=== PATIENT | male | born 2000 | race Caucasian/White ===

== ENCOUNTER 2019-03-31 20:13 | Emergency (ER) | payer OTHER, SELFPAY ==
[2019-03-31] VITALS (23 sets, daily range): BP systolic 116–146; BP diastolic 53–90; PULSE 89–140; RESP 15–30; TEMP 36.7; O2SAT 97–100
--- NOTE | 2019-03-31 20:26 | ED.GENADUL_ITS ---
Discharge Plan Disposition Patient Disposition: HOME Condition: Good Discharge Details Chief Complaint: Allergic Clinical Impression: Allergic reaction Primary Care Provider: Ino Sterling ED Provider: Ino Muñoz Home Meds and New Rx's Prescriptions: New diphenhydramine HCl [Benadryl] 25 MG capsule 25 mg PO Q6H Qty: 100 RF: 0 prednisone 50 MG tablet 50 mg PO DAILY Qty: 5 RF: 0 epinephrine 0.3 mg/0.3 mL auto-injector 0.3 mg IM ONCE Qty: 2 RF: 0 Continued epinephrine [EpiPen 2-Rod] 0.3 MG/0.3 ML auto-injector 0.3 mg IM ONCE Qty: 2 RF: 2 Discharge Instructions Instructions: General Allergic Reaction (ED) Additional Instructions: You have had an allergic reaction. I feel that complete anaphylaxis was held off secondary to your self administration of your EpiPen. Please continue to take 25 mg of Benadryl every 6 hours. Please take the steroid as directed. Please continue to do your best to avoid any tree nuts. If you notice any return of your symptoms please administer your epinephrine and come back to the emergency department immediately for reassessment. If you notice any worsening of your symptoms, or any new symptoms such as vomiting, diarrhea, fever, chills, shortness of breath, chest pain, numbness, weakness, or fainting , please return immediately to the emergency department for reevaluation. Please follow up with your primary care provider as soon as possible for reassessment and reevaluation . As always, it was a pleasure participating in your medical care today. If you do need to use the EpiPen, please apply it to your front aspect of your thigh. 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 Patient ate a meat was [employer] which had sunflower oil in it. Shortly after that he developed symptoms of an atypical tickling his throat which was the precursor to his previous episode of anaphylaxis. Within the past 20 minutes he did a self-administered injection of epinephrine into his anterior lateral thigh. He took 2 Benadryl pills, and came in for further evaluation. Exam demonstrates mild tachycardia, minimal erythema in the posterior oropharynx, but no evidence of angioedema, airway compromise, or significant swelling. No hives on the body, no wheezes in the lungs, and no historical component of vomiting or diarrhea. At this time the patient does look clinically well but notably anxious. I feel this may be secondary to his epinephrine injection. We will hold off on any additional epinephrine at this time, give Solu-Medrol, Pepcid, and additional 25 mg of Benadryl and IV fluids. We will monitor for the next 2 to 3 hours. 10:30 PM On reassessment after prolonged observation. The patient is doing very well. Reexamination of the oropharynx demonstrates no erythema whatsoever, no edema, no evidence of airway compromise. No evidence of rebound anaphylaxis. We discussed risks and benefits of prolonged observation versus discharge and family would like to go home at this time. With a normal exam, reassuring vital signs, no evidence of significant anaphylaxis patient will be discharged with close follow-up with his PCP. Recommend steroids and Benadryl at home, we will give a new EpiPen prescription. He already does have an EpiPen at this time at time of discharge. I have extensively reviewed the treatment plan and discharge instructions with the patient and their family. I have addressed all patient concerns at this time. The patient and family was made aware of what symptoms to monitor for that would warrant a return to the emergency department. Discussed the plan with the patient and family, they demonstrate verbal understanding and agreement with our assessment and plan at this time. HPI General Date/Time Provider Initiated Documentation: 03/31/19 20:18 . HPI Narrative: This is a 18-year-old male with a past medical history only significant for notable allergies to tree nuts, causing anaphylaxis. He presents today for evaluation of allergic reaction. He was eating a meat list burger and unfortunately it did have sunflower oil in it. He immediately began to feel odd, with a notable tickle in his throat. His symptoms were similar to the initial onset when he had his last episode of anaphylaxis in 2012. This occurred 20 minutes ago. Shortly after he noticed his symptoms he injected himself with epinephrine into the anterior lateral thigh, and took 2 Benadryl pills. Since then he has been doing okay. He has not had any vomiting or diarrhea. He denies any rash, difficulty breathing, difficulty swallowing. He denies any hyper secretions. He states he does feel slightly anxious. He has no other complaints at this time. No other modifying factors. He denies any IV or illicit drug use, pertinent family history, or recent surgeries. Related Data Home Medications Medication Instructions Recorded Confirmed diphenhydramine HCl [Benadryl] 25 mg PO Q6H #100 cap 03/31/19 epinephrine 0.3 mg IM ONCE #2 each 03/31/19 epinephrine [EpiPen 2-Rod] 0.3 mg IM ONCE #2 kit 03/31/19 prednisone 50 mg PO DAILY #5 tab 03/31/19 Previous Rx's Medication Instructions Recorded diphenhydramine HCl [Benadryl] 25 mg PO Q6H #100 cap 03/31/19 epinephrine 0.3 mg IM ONCE #2 each 03/31/19 epinephrine [EpiPen 2-Rod] 0.3 mg IM ONCE #2 kit 03/31/19 prednisone 50 mg PO DAILY #5 tab 03/31/19 Allergies Allergy/AdvReac Type Severity Reaction Status Date / Time sunflower seed Allergy Severe Anaphylaxsi Unverified 09/18/17 08:20 s cashew nut Allergy Unknown Unverified 09/18/17 08:20 pistachio nut Allergy Unknown Unverified 09/18/17 08:20 tree nut Allergy Unknown Unverified 09/18/17 08:20 [place] Nut Allergy Unknown Uncoded 12/24/16 15:05 General Stated Complaint: Allergic JEFF: 2 Review of Systems Review of Systems All systems reviewed & are unremarkable except as noted in HPI and below PFSH Medical History Tree nut allergy Family History Mother Mental disorder Father Essential hypertension Hyperlipidemia Brother No problems noted. Social History Smoking/Tobacco Use Status: Never Alcohol Intake: never Drug use: Never Do you feel safe at home: Yes Do you feel safe in your relationship?: Yes Exam Narrative Exam Narrative: 1.Const: Well-nourished, Well-developed, appearing stated age 2.Eyes: PERRL, no conjunctival injection, and symmetrical lids. 3.ENT: Atraumatic external nose and ears. Moist MM. Neck: Symmetric, trachea midline, No thyromegaly. Minimal erythema in the posterior oropharynx. No evidence of significant tonsillar enlargement, angioedema, or airway compromise. No signs of significant hyper secretions. 4.CVS: +S1/S2, No murmurs or gallops. Peripheral pulses 2+ and equal in all extremities. Brisk capillary refill in all extremities. 5.RESP: Unlabored respiratory effort. Clear to auscultation bilaterally. No wheezes rales or rhonchi 6.GI: Soft, Nontender/Nondistended, No hepatosplenomegaly. No guarding or rebound. 7.MSK: Normocephalic/Atraumatic, Extremities w/o deformity or ttp No cyanosis or clubbing, Normal movement of all extremities 8.Skin: Warm, Dry. No rashes or lesions. 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 Sensation grossly intact, no focal neurologic deficits. 10.Psych: (AAO) x3. Appropriate mood and affect Course Vital Signs Temperature 36.7 C 03/31/19 20:22 Pulse 140 H 03/31/19 20:22 Respiratory Rate 20 03/31/19 20:22 Blood Pressure 139/59 L 03/31/19 20:22 Pulse Oximetry 99 03/31/19 20:22 Temperature 36.7 C 03/31/19 20:22 Temperature Source Tympanic 03/31/19 20:22 Pulse 140 H 03/31/19 20:22 Respiratory Rate 20 03/31/19 20:22 Blood Pressure 139/59 L 03/31/19 20:22 Pulse Oximetry 99 03/31/19 20:22 Oxygen Delivery Method Room Air 03/31/19 20:22 Oxygen Flow Rate 0 03/31/19 20:22 Pain Level 0 03/31/19 20:22
[2019-03-31] MEDS: FAMOTIDINE 20 MG/50 ML BAG 200 MG IVPB (20:38)
[2019-03-31] MEDS: diphenhydrAMINE 50 MG/ML VIAL 25 MG IVP (20:38)
[2019-03-31] MEDS: methylPREDNISolone SUCC 125 MG VIAL IVP (20:39)
[2019-03-31] MEDS: Normal Saline 1,000 ML 1000 ML IV (20:39)
== END 2019-03-31 22:42 | disposition home or self-care (01) ==
PROVIDERS: Emergency Provider Student in an Organized Health Care Education/Training Program; PCP Pediatrics
DX: T78.05XA Anaphylactic reaction due to tree nuts and seeds, initial encounter (principal); R00.0 Tachycardia, unspecified
CPT/HCPCS: 96361; 96374; 96375; 99284; J1200; J2930

== ENCOUNTER 2021-08-29 03:01 | Outpatient (CLI) | payer BC, SELFPAY ==
[2021-08-29 11:02] LABS: Anion Gap 12.2 mmol/L (3-11); BUN 16 mg/dL (7-18); CO2 23.8 mmol/L (21.0-32.0); CREATININE 1.2 mg/dL (0.70-1.30); Calcium 9.7 mg/dL (8.5-10.1); Calculated LDL 145 mg/dL (<100); Chloride 103 mmol/L (98-107); Cholesterol 238 mg/dL (<200); Glucose 89 mg/dL (74-106); HDL Cholesterol 59 mg/dL (40-60); Sodium 139 mmol/L (136-145); Triglyceride 174 mg/dL (<150)
== END 2021-08-29 03:02 | disposition home or self-care (01) ==
LOC: LBO 03:01
PROVIDERS: PCP Student in an Organized Health Care Education/Training Program; Visit Provider Student in an Organized Health Care Education/Training Program
DX: Z82.49 Family history of ischemic heart disease and other diseases of the circulatory system; Z13.220 Encounter for screening for lipoid disorders
CPT/HCPCS: 36415; 80048; 80061

== ENCOUNTER 2022-10-31 02:02 | Outpatient (CLI) | payer BC, SELFPAY ==
[2022-10-31 10:20] LABS: ALT 25 U/L (16-63); AST 11 U/L (15-37); Albumin 4.5 g/dL (3.4-5.0); Alkaline Phosphatase 61 U/L (46-116); Anion Gap 9.9 mmol/L (3-11); BUN 19 mg/dL (7-18); Bilirubin, Total 0.4 mg/dL (0.2-1.0); CO2 28.1 mmol/L (21.0-32.0); Calcium 9.2 mg/dL (8.5-10.1); Calculated LDL 133 mg/dL (<100); Chloride 106 mmol/L (98-107); Cholesterol 213 mg/dL (<200); Estimated GFR 108.46 (mL/min/1.73m2); Glucose 102 mg/dL (74-106); HDL Cholesterol 56 mg/dL (40-60); Potassium 3.8 mmol/L (3.5-5.1); Sodium 144 mmol/L (136-145); Total Protein 7.6 g/dL (6.4-8.2); Triglyceride 124 mg/dL (<150)
== END 2022-10-31 02:03 | disposition home or self-care (01) ==
LOC: LBO 02:02
PROVIDERS: PCP Student in an Organized Health Care Education/Training Program; Visit Provider Student in an Organized Health Care Education/Training Program
DX: Z00.00 Encounter for general adult medical examination without abnormal findings (principal); E66.3 Overweight; E86.0 Dehydration; Z13.220 Encounter for screening for lipoid disorders; Z91.018 Allergy to other foods; Z82.49 Family history of ischemic heart disease and other diseases of the circulatory system
CPT/HCPCS: 36415; 80053; 80061; 86900; 86901

== ENCOUNTER 2024-09-01 04:13 | Outpatient (CLI) | payer BC, SELFPAY ==
[2024-09-01 09:14] LABS: Anion Gap 10.7 mmol/L (3-11); BUN 15 mg/dL (7-18); CO2 27.3 mmol/L (21.0-32.0); CREATININE 1.1 mg/dL (0.70-1.30); Calcium 9.6 mg/dL (8.5-10.1); Calculated LDL 117 mg/dL (<100); Chloride 105 mmol/L (98-107); Cholesterol 203 mg/dL (<200); Estimated GFR 96.14 (mL/min/1.73m2); Glucose 94 mg/dL (74-106); HDL Cholesterol 58 mg/dL (40-60); Potassium 4.1 mmol/L (3.5-5.1); Sodium 143 mmol/L (136-145); Triglyceride 143 mg/dL (<150)
== END 2024-09-01 04:14 | disposition home or self-care (01) ==
LOC: LBO 04:13
PROVIDERS: PCP Student in an Organized Health Care Education/Training Program; Visit Provider Student in an Organized Health Care Education/Training Program
DX: Z13.220 Encounter for screening for lipoid disorders (principal); Z13.1 Encounter for screening for diabetes mellitus; Z91.89 Other specified personal risk factors, not elsewhere classified
CPT/HCPCS: 36415; 80048; 80061

== ENCOUNTER 2025-05-12 18:35 | Emergency (ER) | payer BC, SELFPAY ==
[2025-05-12] VITALS (18 sets, daily range): BP systolic 91–107; BP diastolic 34–65; PULSE 109–124; RESP 20; TEMP 36.5; O2SAT 97–100
--- NOTE | 2025-05-12 18:55 | ED.GENADUL_ITS ---
Discharge Plan Disposition Patient Disposition: Home Condition: Stable Discharge Details Clinical Impression: Allergic reaction Primary Care Provider: Dav Cooper ED Provider: Ector Chapin Home Meds and New Rx's Prescriptions: New prednisone 20 mg tablet 60 mg PO DAILY 4 Days Qty: 12 0RF Continued epinephrine 0.3 mg/0.3 mL auto-injector 0.3 mg IM ONCE Qty: 2 2RF Rx Instructions: Use prn severe allergic reaction diphenhydramine HCl [Benadryl] 25 MG capsule 25 mg PO Q6H Qty: 100 0RF Discharge Instructions Additional Instructions: Follow-up with your primary care provider as needed. You can take 25 to 50 mg of Benadryl or generic diphenhydramine every 6 hours as needed. If you feel more ill or have recurrent lip swelling, rash or difficulty breathing use your EpiPen and return to the emergency department for reevaluation. HPI General Mode of arrival: ambulatory . Date/Time Provider Initiated Documentation: 05/12/25 18:51 . Limitations to Documentation: no limitations . Information obtained by: patient . History of Present Illness 24 year old M presents to the emergency department with the chief complaint of lip swelling, described as moderate, Patient started experiencing this hour(s) (1) and it has been now resolved. No relieving factors improve symptom(s), No exacerbating factors reported . Patient notes denies chest pain, nausea/vomiting and shortness of breath. Related Data Home Medications ?Medication ?Instructions ?Recorded ?Confirmed diphenhydramine HCl 25 mg capsule 25 mg PO Q6H #100 ca ps 03/31/19 01/20/25 (Benadryl) epinephrine 0.3 mg/0.3 mL 0.3 mg (0.3 mL) IM ONCE #2 e a 05/12/25 injection, auto-injector prednisone 20 mg tablet 60 mg (3 x 20 mg) PO DAILY 4 days 05/12/25 #12 tabs Previous Rx's ?Medication ?Instructions ?Recorded diphenhydramine HCl 25 mg capsule 25 mg PO Q6H #100 ca ps 03/31/19 (Benadryl) epinephrine 0.3 mg/0.3 mL 0.3 mg (0.3 mL) IM ONCE #2 e a 05/12/25 injection, auto-injector prednisone 20 mg tablet 60 mg (3 x 20 mg) PO DAILY 4 days 05/12/25 #12 tabs Allergies Allergy/AdvReac Type Severity Reaction Status Date / Time sunflower seed Allergy Severe Anaphylaxsi Verified 01/20/25 13:22 s cashew nut Allergy Unknown Anaphylaxis Verified 01/20/25 13:22 pistachio nut Allergy Unknown Anaphylaxis Verified 01/20/25 13:22 tree nut Allergy Unknown Anaphylaxis Verified 01/20/25 13:22 [place] Nut Allergy Unknown Anaphylaxis Uncoded 01/20/25 13:22 General Stated Complaint: Allergic JEFF: 3 Review of Systems All systems reviewed & are unremarkable except as noted in HPI and below Constitutional Constitutional: Denies chills, Denies fever(s) and Denies weakness Cardiovascular Cardiovascular: Denies chest pain and Denies dyspnea Respiratory Respiratory: Denies cough and Denies dyspnea Gastrointestinal Gastrointestinal: Denies abdominal pain, Denies nausea and Denies vomiting Neurologic Neurologic: Denies weakness Psychiatric Psychiatric: Denies depression Exam Const General: no acute distress Orientation: alert HENMT Head: normal to inspection Ears: external ears normal General nose exam: external nose normal Mouth: moist mucous membranes Eyes General: appearance normal, both eyes and all related structures Neck Neck: normal visual inspection Resp Effort & Inspection: normal respiratory effort and able to speak in complete sentences Auscultation: clear to auscultation bilaterally Cardio Rate: regular rate GI Palpation: soft and nontender Skin General skin exam: no rashes or lesions noted Neuro General: patient alert and patient oriented x3 Extrem General: normal to inspection Psych Mental Status: mental status grossly normal Course Vital Signs Vital signs: Vital Signs Temperature 36.5 C 05/12/25 18:45 Pulse 118 H 05/12/25 18:45 Respiratory Rate 20 05/12/25 18:45 Blood Pressure 107/65 05/12/25 18:45 Pulse Oximetry 100 05/12/25 18:45 Temperature 36.5 C 05/12/25 18:45 Temperature Source Temporal Artery Scan 05/12/25 18:45 Pulse 118 H 05/12/25 18:45 Respiratory Rate 20 05/12/25 18:45 Respiratory Effort Normal 05/12/25 18:48 Respiratory Pattern Normal 05/12/25 18:48 Blood Pressure 107/65 05/12/25 18:45 Blood Pressure Position Sitting 05/12/25 18:45 Pulse Oximetry 100 05/12/25 18:45 Oxygen Delivery Method Room Air 05/12/25 18:45 Oxygen Flow Rate 0 05/12/25 18:45 Medical Decision Making 24-year-old male who has a known sensitivity to sunflower seeds states he ordered food from a new restaurant got home and started eating and noticed his lips felt like they were swelling, so he administered his EpiPen and called 911. EMS gave him Benadryl and Solu-Medrol IV and he is currently asymptomatic. He denies ever having any rashes, respiratory symptoms or abdominal symptoms. He has no evidence of lip swelling on exam, midline normal-appearing uvula. Clear lung sounds, soft nontender abdomen. Suspect he had anaphylaxis, will observe to ensure does notrequire additional epinephrine. Patient stable and asymptomatic. Feel he is stable for discharge and will provide him a few more days of prednisone and also refill his epinephrine pen. Return precautions given. Differential Diagnosis Differential Diagnosis: Anaphylaxis, allergic reaction PFSH All Active Problems (Updated 05/12/25 @ 19:36 by Ector Chapin MD) Allergic reaction (Acute) Weight gain (Acute) Family hx of hypertension (Acute) Body mass index (BMI) of 25.0-25.9 in adult (Acute 09/18/17) History of food anaphylaxis (Acute 02/23/13) Medical History (Updated 05/12/25 @ 19:36 by Ector Chapin MD) Tree nut allergy Family History (Updated 10/05/20 @ 09:13 by Ayaka Dutton RN) Mother Mental disorder depression or anxiety Father Essential hypertension Hyperlipidemia Maternal Grandfather Lung cancer Social History (Updated 11/27/23 @ 14:28 by Rea Lemus RN) Smoking/Tobacco Use Status: Never Smoking risk assessment performed?: Yes Alcohol Intake: never Drug use: Never Counseling given: No Adopted: No Caregiver/Support person: No Foster care: No Household members: family Housing: apartment Number of Children: 0 number of grandchildren: 0 Communication Needs: None Education Level: other Details: Bachelors degree Do you need help understanding health information?: Rarely 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 Pets and animals: Yes Pets and animals: cat(s) Sexually active: No Do you think of yourself as: straight/heterosexual Current gender identity: male What is your relationship status?: never How often do you talk on the phone with friends or family?: twice per week How often do you get together with friends or relatives?: once per week Do you belong to any clubs or organized social groups?: no Panel score (0-1 are the most socially isolated patients): 1 What type of physical activity do you participate in: walking Duration: 15-30 minutes/day Frequency: 1-2 times per week Mariaelena/Worship: None Special mariaelena needs: No Seatbelt use: always Helmet use: Yes Drive intox or ride w/intox school bus driver/mechanic: No Do you feel safe at home: Yes Do you feel safe in your relationship?: Yes PAWSS Have you Been Recently Intoxicated or Drunk Within the Last 30 days?: No Have you Ever Experienced Previous Episodes of Alcohol Withdrawal?: No Have you ever Experienced Withdrawal Seizures?: No Have you ever Experienced Delirium Tremens(DT)s?: No Have you ever undergone Alcohol Rehabilitation Treatment (i.e, inpt ot outpatient treatment programs)?: No Have you ever Experienced Blackouts?: No Have you ever Combined Alcohol with other Downers within the last 90 days?: No Have you ever Combined Alcohol with any other Substance of Abuse during the last 90 days?: No Positive Blood Alcohol level on Presentation? [PCS.BAL]: No Evidence of Increased Autonomic Activity (i.e. HR>120, tremor, sweating, agitation, nausea)?: No Result: 0
== END 2025-05-12 20:42 | disposition home or self-care (01) ==
PROVIDERS: Emergency Provider Emergency Medicine; PCP Family Medicine
DX: T78.49XA Other allergy, initial encounter (principal)
CPT/HCPCS: 99283 ×2